=== PATIENT | male | born 1990 | race Caucasian/White ===

== ENCOUNTER 2018-08-29 19:28 | Emergency (ER) | payer SELFPAY ==
[~2018-08-29] VITALS: Ht 165.1 cm; Wt 90.7 kg
[2018-08-29 19:30] VITALS: Ht 165.1 cm; Wt 90.7 kg
[2018-08-29 20:57] VITALS: BP 132/84
== END 2018-08-29 20:57 | disposition home or self-care (01) ==
LOC: ED 19:28
DX: S82.831A Other fracture of upper and lower end of right fibula, initial encounter for closed fracture (principal); W22.8XXA Striking against or struck by other objects, initial encounter; Y93.89 Activity, other specified; Y92.89 Other specified places as the place of occurrence of the external cause; Y99.8 Other external cause status
CPT/HCPCS: Q0092